=== PATIENT | male | born 1955 | race Caucasian/White ===

== ENCOUNTER → 2022-09-08 | Outpatient (CLI) | payer MEDICARE ==
[~2022-09-08] MED LIST: ALAVERT10 M1; ASTEPRO137 MCG/Ac; CELEBREX200 MG; FLEXERIL10 MG; LOVASTATIN40 MG; NASANEX; NEURONTIN100 MG; OMEPRAZOLE D/R20 MG; PATANOL EYE DROPS; VIAGRA50 MG; ZITHROMAX Z-PA250 MG PO; ZOLPIDEM10 M1; [UNRECOGNIZED DRUG - OTHER]
== END | disposition home or self-care (01) ==
LOC: RESCLI 08:34
PROVIDERS: ATTEND Internal Medicine
DX: G62.9 Polyneuropathy, unspecified (principal); G89.29 Other chronic pain; E78.5 Hyperlipidemia, unspecified; I10 Essential (primary) hypertension; G47.33 Obstructive sleep apnea (adult) (pediatric); M10.9 Gout, unspecified; M19.90 Unspecified osteoarthritis, unspecified site; J30.1 Allergic rhinitis due to pollen; K21.9 Gastro-esophageal reflux disease without esophagitis; F10.90 Alcohol use, unspecified, uncomplicated; Z98.890 Other specified postprocedural states; Z79.82 Long term (current) use of aspirin; Z79.899 Other long term (current) drug therapy